=== PATIENT | male | born 1960 | race American Indian/Alaskan Native ===

== ENCOUNTER 2019-05-14 05:12 | Emergency (ER) | payer MEDICARE ==
[2019-05-14 05:18] VITALS: BP 162/78
--- NOTE | 2019-05-14 09:03 | Emergency Department Report ---
ED Back Pain/Injury HPI - General Chief Complaint: Back Pain/Injury Stated Complaint: BACK,CHEST PAIN X 3DAYS Time Seen by Provider: 05/14/19 07:47 Source: patient Limitations: No Limitations - History of Present Illness Initial Comments: 58-year-old -[place] male presents emergency department complaining of pain to his right back and hip area that radiates down his his buttocks and his leg in a sharp burning fashion. He denies any traumatic injury that preceded these the symptoms with Ativan they have been progressively worsening over the last week. Reports no hematuria or dysuria no fever, chills, sweats no chest pain or palpitations no nausea or vomiting. He reports no previous known history of sciatica but has not been to see a specialist for diagnosis although he has had these similar symptoms in the past. MD Complaint: back pain, back injury Similar Symptoms Previously: No Place: home Radiation: none Severity: mild Quality: burning, sharp Consistency: constant Improves With: none Worsens With: movement Associated Symptoms: denies: chest pain, numbness, incontinence, fever/chills, rash, syncope - Related Data Previous Rx's Medication Instructions Recorded Last Taken Type Ketorolac [Toradol] 10 mg PO Q6H PRN #14 tablet 05/14/19 Unknown Rx methOCARBAMOL [Robaxin TAB] 750 mg PO Q8H #20 tablet 05/14/19 Unknown Rx Allergies Allergy/AdvReac Type Severity Reaction Status Date / Time No Known Allergies Allergy Unverified 02/12/15 12:43 ED Review of Systems ROS: Stated complaint: BACK,CHEST PAIN X 3DAYS Other details as noted in HPI Comment: All other systems reviewed and negative ED Past Medical Hx - Past Medical History Hx Hypertension: Yes - Surgical History Additional Surgical History: C3 fusion - Social History Smoking Status: Current Every Day Smoker Substance Use Type: Alcohol - Medications Home Medications: Home Medications Medication Instructions Recorded Confirmed Last Taken Type Ketorolac [Toradol] 10 mg PO Q6H PRN #14 tablet 05/14/19 Unknown Rx methOCARBAMOL [Robaxin TAB] 750 mg PO Q8H #20 tablet 05/14/19 Unknown Rx ED Physical Exam - General Limitations: No Limitations General appearance: alert, in no apparent distress - Head Head exam: Present: atraumatic, normocephalic - Eye Eye exam: Present: normal appearance - ENT ENT exam: Present: mucous membranes moist - Neck Neck exam: Present: normal inspection - Respiratory Respiratory exam: Present: normal lung sounds bilaterally. Absent: respiratory distress - Cardiovascular Cardiovascular Exam: Present: regular rate, normal rhythm. Absent: systolic murmur, diastolic murmur, rubs, gallop - GI/Abdominal GI/Abdominal exam: Present: soft, normal bowel sounds - Rectal Rectal exam: Present: deferred - Extremities Exam Extremities exam: Present: normal inspection - Back Exam Back exam: Present: normal inspection, tenderness ( The right sacroiliac joint. Straight leg raise is negative. Jaime's test is negative. Strength is normal for range of motion is noted.). Absent: CVA tenderness (R), CVA tenderness (L) - Neurological Exam Neurological exam: Present: alert, oriented X3, CN II-XII intact - Psychiatric Psychiatric exam: Present: normal affect, normal mood - Skin Skin exam: Present: warm, dry, intact, normal color. Absent: rash ED Course Vital Signs 05/14/19 05:16 Temperature 98.4 F Pulse Rate 77 Respiratory 18 Rate Blood Pressure 162/78 O2 Sat by Pulse 98 Oximetry ED Medical Decision Making - Medical Decision Making Pt presents the emergency department complaining of back pain most consistent with sciatica back Pain Most Consistent with Strain/Contusion. Differential Diagnosis Includes Lumbar Go Versus Musculoskeletal Spasm, Strain Versus Sciatica. No Back Pain Red Flags on History or Physical. Presentation Not Consistent with Malignancy, Fracture, Cauda Equina, Abdominal Aortic Aneurysm, Viscus Perforation, Pulmonary Embolism, Renal Colic, Pyelonephritis. Patient reports no B symptoms, trauma trauma, incontinence, saddle anesthesia, distal weakness, urinary symptoms and is a febrile. Critical care attestation.: If time is entered above; I have spent that time in minutes in the direct care of this critically ill patient, excluding procedure time. ED Disposition Clinical Impression: Lumbago with sciatica Disposition: TO HOME OR SELFCARE Is pt being admited?: No Does the pt Need Aspirin: No Condition: Stable Prescriptions: methOCARBAMOL [Robaxin TAB] 750 mg PO Q8H #20 tablet Ketorolac [Toradol] 10 mg PO Q6H PRN #14 tablet PRN Reason: Pain Referrals: SANDY GILLESPIE MD [Primary Care Provider] - 3-5 Days
== END 2019-05-14 08:41 | disposition home or self-care (01) ==
LOC: ED 05:12
DX: M54.41 Lumbago with sciatica, right side (principal); I10 Essential (primary) hypertension; F17.200 Nicotine dependence, unspecified, uncomplicated
CPT/HCPCS: 99281